=== PATIENT | male | born 1975 | race Caucasian/White ===

== ENCOUNTER 2021-11-10 09:13 | Outpatient (CLI) | payer OTHER, SELFPAY ==
--- NOTE | 2021-11-10 11:00 | NEURO_ITS ---
Impression: # Complains of numbness of feet. History of spinal fusion and recently diagnosed diabetic. # Absent sural and superficial peroneal sensory nerve responses. # Amplitude drop of bilateral peroneal nerves. # Neurogenic needle/EMG exam in left EDB. 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 Nerve Conduction Studies Anti Sensory Summary Table Stim Site NR Peak (ms) P-T Amp (?V) Site1 Site2 Delta-P (ms) Dist (cm) Ajit (m/s) Left Sup Fibular Anti Sensory (Ant Lat Mall) NO RESPONSE 14 cm NR 14 cm Ant Lat Mall 16.0 Right Sup Fibular Anti Sensory (Ant Lat Mall) 14 cm 3.9 21.4 14 cm Ant Lat Mall 3.9 16.0 41 Left Sural Anti Sensory (Lat Mall) NO RESPONSE Calf NR Calf Lat Mall 16.0 Right Sural Anti Sensory (Lat Mall) NO RESPONSE Calf NR Calf Lat Mall 16.0 Motor Summary Table Stim Site NR Onset (ms) O-P Amp (mV) Site1 Site2 Delta-0 (ms) Dist (cm) Ajit (m/s) Left Peroneal Motor (Vastus Med) Ankle 5.5 1.3 Popit Ankle 9.5 39.0 41 Popit 15.0 1.0 Right Peroneal Motor (Vastus Med) Ankle 5.2 0.9 Popit Ankle 9.7 39.0 40 Popit 14.9 1.1 Left Tibial Motor (Abd Mcrae Brev) Ankle 5.8 3.6 Knee Ankle 10.2 41.0 40 Knee 16.0 3.2 Right Tibial Motor (Abd Mcrae Brev) Ankle 5.2 7.6 Knee Ankle 10.3 43.0 42 Knee 15.5 6.2 F Wave Studies NR F-Lat (ms) L-R F-Lat (ms) Left Peroneal (Mrkrs) (EDB) 59.35 0.54 Right Peroneal (Mrkrs) (EDB) 59.88 0.54 Left Tibial (Mrkrs) (Abd Hallucis) 58.64 0.35 Right Tibial (Mrkrs) (Abd Hallucis) 58.99 0.35 EMG Side Muscle Nerve Root Ins Act Fibs Amp Dur Recrt Comment Right AntTibialis Dp Br Fibular L4-5 Nml Nml Nml Nml Nml Right Gastroc Tibial S1-2 Nml Nml Nml Nml Nml Right Fibularis Long Sup Br Fibular L5-S1 Nml Nml Nml Nml Nml Right Flex Dig Long Tibial L5-S2 Nml Nml Nml Nml Nml Right Ext Dig Brev Dp Br Fibular L5, S1 Nml Nml Nml Nml Nml Left AntTibialis Dp Br Fibular L4-5 Nml Nml Nml Nml Nml Left Gastroc Tibial S1-2 Nml Nml Nml Nml Nml Left Fibularis Long Sup Br Fibular L5-S1 Nml Nml Nml Nml Nml Left Flex Dig Long Tibial L5-S2 Nml Nml Nml Nml Nml Left Ext Dig Brev Dp Br Fibular L5, S1 Nml Nml Incr >12ms Reduced Left QuadratusFem QuadFemoris L4-5, S1 Nml Nml Nml Nml Nml Right QuadratusFem QuadFemoris L4-5, S1 Nml Nml Nml Nml Nml MTDD
== END 2021-11-10 09:14 | disposition home or self-care (01) ==
PROVIDERS: PCP Family Medicine; Visit Provider Family Medicine
DX: R20.0 Anesthesia of skin (principal); Z98.1 Arthrodesis status; E11.9 Type 2 diabetes mellitus without complications; R94.131 Abnormal electromyogram [EMG]
CPT/HCPCS: 95886; 95910

== ENCOUNTER 2022-12-07 14:12 | Outpatient (RCR) | payer OTHER, SELFPAY | END 2023-01-24 13:09 | disposition home or self-care (01) | LOC: ANHDMC 14:12 | PROVIDERS: PCP Family Medicine; Visit Provider Family Medicine | DX: E11.9 Type 2 diabetes mellitus without complications (principal); Z79.4 Long term (current) use of insulin; Z71.89 Other specified counseling | CPT/HCPCS: G0108 ==